=== PATIENT | female | born 1980 | race Caucasian/White ===

== ENCOUNTER → 2020-09-04 | Outpatient (CLI) | payer MEDICARE | LOC: LAB 14:16 | DX: Z95.2 Presence of prosthetic heart valve (principal) | CPT/HCPCS: 36415; 85610 ==

== ENCOUNTER → 2021-08-06 | Outpatient (CLI) | payer MEDICARE | LOC: LAB 14:57 | DX: D68.59 Other primary thrombophilia (principal); Z95.2 Presence of prosthetic heart valve | CPT/HCPCS: 85610 ==

== ENCOUNTER → 2022-01-11 | Outpatient (CLI) | payer MEDICARE | LOC: HEART 5 12-30 09:00 | DX: R06.02 Shortness of breath (principal); R00.2 Palpitations | CPT/HCPCS: 93306 ==